=== PATIENT | female | born 1945 | race Caucasian/White ===

== ENCOUNTER 2020-09-05 09:40 | Outpatient (CLI) | payer OTHER, SELFPAY ==
--- NOTE | ~2020-09-05 | MM_ITS ---
EXAMINATION: MM screening [facility] BI w moe HISTORY: Screening TECHNIQUE: Craniocaudal and mediolateral oblique 3-D tomosynthesis images were obtained and synthetic 2-D images were generated. CAD analysis was submitted and interpreted. COMPARISON: Comparison to multiple prior studies sequentially, with oldest reviewed study dated 08/01. BREAST PARENCHYMAL COMPOSITION: There are scattered areas of fibroglandular density. FINDINGS: There is no evidence of suspicious mass, calcification, or architectural distortion to sugg est malignancy in either breast. There has been no suspicious interval change. IMPRESSION: 1. No mammographic evidence of malignancy. 2. Recommend routine screening mammography in one year. BI-RADS Category 1: Negative Reviewed, dictated and finalized at location A.
== END 2020-09-05 09:41 | disposition home or self-care (01) ==
LOC: ANHIMG 09:45
PROVIDERS: PCP Emergency Medicine; Visit Provider Emergency Medicine
DX: Z12.31 Encounter for screening mammogram for malignant neoplasm of breast (principal)
CPT/HCPCS: 77063; 77067

== ENCOUNTER 2021-01-08 14:29 | Outpatient (CLI) | payer OTHER, SELFPAY ==
--- NOTE | ~2021-01-08 | DEXA_ITS ---
Bone Density Report Name: Haydee Ruiz Age: 75 Sex: Female Ethnicity: White Date of : 1945 Indication: postmenopausal; height loss; hysterectomy; Referring Provider: DAVIAN OLIVER Study: Bone densitometry was performed. Exam Date: January 08, 2021 Accession number: [id number] Bone Density: Region BMD T-score Z-score Classification AP Spine (L1-L4) 0.943 -0.9 1.3 Normal Femoral Neck (Left) 0.727 -1.1 0.9 Osteopenia Total Hip (Left) 0.940 0.0 1.7 Normal Total Hip Bilateral Avg 0.894 -0.4 1.3 Normal Femoral Neck (Right) 0.676 -1.6 0.4 Osteopenia Total Hip (Right) 0.846 -0.8 0.9 Normal World Health Organization criteria for BMD impression classify patients as: Normal (T-score at or above -1.0), Osteopenia (T-score between -1.0 and -2.5), or Osteoporosis (T-score at or below -2.5). 10-year Fracture Risk(1): Major Osteoporotic Fracture 10% Hip Fracture 1.7% Reported Risk Factors: [place] (), Neck BMD=0.676, BMI=34.9 (1) FRAX(R) Version 3.08. Fracture probability calculated for an untreated patient. Fracture probability may be lower if the patient has received treatment. Previous Exams: Region Exam Age BMD T-score BMD Change BMD Change Date g/cm2 vs Baseline vs Previous AP Spine(L1-L4) 01/08/2021 75 0.943 -0.9 -0.043(-4.4%)# 0.006(0.7%) 01/27/2018 72 0.937 -1.0 -0.049(-5.0%)# -0.014(-1.5%) 08/13/2015 69 0.951 -0.9 -0.035(-3.6%)# -0.069(-6.7%)# 03/07/2009 63 1.019 -0.3 0.033(3.4%)* 0.033(3.4%)* 03/04/2007 61 0.986 -0.6 Total Hip(Left) 01/08/2021 75 0.940 0.0 0.022(2.4%)# 0.006(0.7%) 01/27/2018 72 0.934 -0.1 0.016(1.8%)# -0.021(-2.2%) 08/13/2015 69 0.955 0.1 0.038(4.1%)# -0.029(-3.0%)# 07/10/2013 67 0.984 0.3 0.067(7.3%)# -0.018(-1.8%) 06/05/2011 65 1.002 0.5 0.085(9.2%)# 0.066(7.0%)# 03/07/2009 63 0.937 0.0 0.019(2.1%) 0.019(2.1%) 03/04/2007 61 0.918 -0.2 Total Hip(Right) 01/08/2021 75 0.846 -0.8 -0.020(-2.3%)# -0.043(-4.8%)* 01/27/2018 72 0.890 -0.4 0.024(2.7%)# -0.009(-1.0%) 08/13/2015 69 0.898 -0.4 0.033(3.8%)# -0.007(-0.8%)# 07/10/2013 67 0.906 -0.3 0.040(4.6%)# 0.029(3.3%)* 06/05/2011 65 0.877 -0.5 0.011(1.3%)# 0.010(1.1%)# 03/07/2009 63 0.867 -0.6 0.001(0.2%) 0.001(0.2%) 03/04/2007 61 0.866 -0.6 *Denotes significance at 95% confidence level, LSC for AP Spine = 0.022 g/cm2, LSC for Total Hip = 0.027 g/cm2 Clinical Information Provided by Patient: --------
== END 2021-01-08 14:30 | disposition home or self-care (01) ==
PROVIDERS: PCP Emergency Medicine; Visit Provider Emergency Medicine
DX: R53.83 Other fatigue (principal); Z78.0 Asymptomatic menopausal state; M85.852 Other specified disorders of bone density and structure, left thigh; M85.851 Other specified disorders of bone density and structure, right thigh
CPT/HCPCS: 77080

== ENCOUNTER 2021-01-21 12:09 | Emergency (ER) | payer OTHER, SELFPAY ==
[2021-01-21 12:15] VITALS: BP 181/68; PULSE 89; RESP 20; TEMP 36.3; O2SAT 100
[2021-01-21 12:18] VITALS: BP 181/68; PULSE 89; RESP 20; TEMP 36.3; O2SAT 100
--- NOTE | 2021-01-21 12:40 | ED.SKABFB ---
HPI - Skin/Abscess/Foreign Bdy General Chief complaint: Skin/Abscess/Foreign Body Stated complaint: rash Time Seen by Provider: 01/21/21 12:42 Source: patient, RN notes reviewed and old records reviewed Mode of arrival: ambulatory Limitations: no limitations History of Present Illness HPI narrative: 75 year old female who presents to [facility] care with complaints of 2.5 weeks of dry irritated scaly rash to bilateral face around sides of her mouth.Patient states that at times it will form little pustules in rash. Patient states that she has tried new facial cleanser and toner lately that does contain some retinol. Patient denies any new medications, foods, laundry products or bath soaps. Patient states that she has applied Blistex to areas with no improvement. MD complaint: rash Onset (ago): week(s) (2.5) Related Data Home Medications Medication Instructions Recorded Confirmed calcium carbonate 500 mg (1,250 1 tablet PO BID 03/27/19 06/25/20 mg)-vitamin D3 200 unit tablet cholecalciferol (vitamin D3) 50 2,000 unit PO DAILY 03/27/19 06/25/20 mcg (2,000 unit) tablet metoprolol succinate 25 mg 25 mg PO DAILY 03/27/19 06/25/20 tablet,extended release 24 hr pediatric multivitamin PO BID tablet 03/28/19 06/25/20 no.12-sodium fluoride 0.25 mg chewable tablet Allergies Allergy/AdvReac Type Severity Reaction Status Date / Time Sulfa (Sulfonamide Allergy Unknown Headache Verified 10/23/20 09:57 Antibiotics) Review of Systems Review of Systems: CONSTITUTIONAL: Denies fever, chills, or sweats. EYES: Denies visual changes, redness, or discharge. ENT: Denies rhinorrhea, congestion, sore throat, or otalgia. CARDIOVASCULAR: Denies chest pain, palpitations, or edema. RESPIRATORY: Denies cough or dyspnea. GASTROINTESTINAL: Denies abdominal pain, nausea, vomiting, or diarrhea. GENITOURINARY: Denies dysuria or hematuria. SKIN:Positive for facial rash along sides of mouth,states burning sensation with no itching. MUSCULOSKELETAL: Denies back pain, joint pain, or myalgia. NEUROLOGIC: Denies headache, numbness, or weakness. PSYCHIATRIC: Denies anxiety or depression. All systems reviewed & are unremarkable except as noted in HPI and below PMFSH Past Medical History Medical History Anxiety Arthritis GERD (gastroesophageal reflux disease) Gout HTN (hypertension) Sinusitis UTI (urinary tract infection) Vitamin D deficiency Surgical History Surgical History H/O: hysterectomy Hx of cholecystectomy Family History Family History Sibling Hypertension Family history of human immunodeficiency virus infection, Onset Age: 32 Patient's brother is Family history of malignant neoplasm Family history of chronic obstructive pulmonary disease Father Family history of congestive heart failure Patient's father is Hypertension, Onset Age: 73 Family history of thoracic aortic aneurysm Family history of congenital heart disease, Onset Age: 73 Grandparent Diabetes mellitus Family history of pancreatic cancer, Onset Age: 83 Family history of primary malignant neoplasm of liver Asthma Mother Family history of osteoporosis Hypertension Patient's mother is in good health Family history of arthritis Social History Social History (Updated 01/23/21 @ 11:16 by Karla Mcdonough NP) Smoking status: Never smoker Alcohol intake: current Alcohol use details: rare Substance use: never Living arrangements: with family Occupation/Education: retired Gender identity (if verbalized by the patient): Female Comments At time of signature, agree with nursing past medical, surgical, social and family history. There is no relevant family history pertinent to the presenting complaint Exam Narrative: GENERAL: Well-
== END 2021-01-21 13:12 | disposition home or self-care (01) ==
PROVIDERS: Emergency Provider Registered Nurse; PCP Emergency Medicine
DX: L25.9 Unspecified contact dermatitis, unspecified cause (principal); M19.90 Unspecified osteoarthritis, unspecified site; K21.9 Gastro-esophageal reflux disease without esophagitis; M10.9 Gout, unspecified; I10 Essential (primary) hypertension; E55.9 Vitamin D deficiency, unspecified
CPT/HCPCS: 99213; G0463

== ENCOUNTER → 2021-06-26 09:13 | Outpatient (CLI) | payer OTHER, SELFPAY ==
--- NOTE | ~2021-06-26 | XR_ITS ---
EXAMINATION: XR foot LT 2V EXAM DATE: 06/26/2021 09:39 INDICATION: M79.672 - Pain in left foot TECHNIQUE: Frontal and lateral projections of the left foot Comparison is made to prior examination from 06/24/2018. Correlation was made with contralateral foot same date. FINDINGS: Tiny left calcaneal spurs. There is mild 1st metatarsophalangeal joint primary osteoarthri tis. There are no bony erosions identified. There are no acute fractures or dislocations identified. There is no subcutaneous gas. The soft tissue is unremarkable. There are no radiopaque foreign b odies. 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 Small calcaneal spurs. Reviewed, dictated and finalized at location A. AL BEHAVIORIST
--- NOTE | ~2021-06-26 | XR_ITS ---
EXAMINATION: XR foot RT 2V EXAM DATE: 06/26/2021 09:39 INDICATION: M79.671 - Pain in right foot. TECHNIQUE: Frontal and lateral projections of the right foot. Comparison study from 06/24/2018. FINDINGS: Small posterior and inferior right calcaneal spurs. There is mild right 1st metatarsophala ngeal joint. primary osteoarthritis. There are no bony erosions identified. There are no acute fract ures or dislocations identified. There is no subcutaneous gas. The soft tissue is unremarkable. T here are no radiopaque foreign bodies. IMPRESSION: Mild right 1st MTP osteoarthritis. Small calcaneal spurs. Reviewed, dictated and finalized at location A. OWS SYSTEMS ENGINEER
== END ==
PROVIDERS: Visit Provider Emergency Medicine
DX: M19.071 Primary osteoarthritis, right ankle and foot (principal); M19.072 Primary osteoarthritis, left ankle and foot; M77.31 Calcaneal spur, right foot; M77.32 Calcaneal spur, left foot
CPT/HCPCS: 73620

== ENCOUNTER 2022-03-13 11:00 | Outpatient (CLI) | payer OTHER, SELFPAY ==
--- NOTE | ~2022-03-13 | MM_ITS ---
EXAMINATION: MM screening [facility] BI w moe HISTORY: Screening mammogram TECHNIQUE: Craniocaudal and mediolateral oblique 3-D tomosynthesis images were obtained and synthetic 2-D images were generated. CAD analysis was submitted and interpreted. COMPARISON: 09/05/2020, 02/01/2019, 01/27/2018 BREAST PARENCHYMAL COMPOSITION: There are scattered areas of fibroglandular density. FINDINGS: No suspicious mass, calcification, or architectural distortion are identified in either tom ast to suggest malignancy. There has been no suspicious interval change. IMPRESSION: 1. No mammographic evidence of malignancy. 2. Recommend routine screening mammography in one year. BI-RADS Category 1: Negative Reviewed, dictated and finalized at location A. GER PAYMENT
== END 2022-03-13 11:01 | disposition home or self-care (01) ==
PROVIDERS: PCP Emergency Medicine; Visit Provider Emergency Medicine
DX: Z12.31 Encounter for screening mammogram for malignant neoplasm of breast (principal)
CPT/HCPCS: 77063; 77067

== ENCOUNTER 2023-05-02 12:02 | Emergency (ER) | payer OTHER, SELFPAY ==
[2023-05-02 12:13] VITALS: BP 169/68; PULSE 55; RESP 16; TEMP 36.3; O2SAT 98
[2023-05-02 12:14] VITALS: BP 169/68; PULSE 55; RESP 16; TEMP 36.3; O2SAT 98
--- NOTE | 2023-05-02 12:22 | ED.URI ---
HPI - URI/Sore Throat General Chief Complaint: Upper Respiratory Infection Stated Complaint: Cough, Wheezing Time Seen by Provider: 05/02/23 12:15 Source: patient and RN notes reviewed Mode of arrival: ambulatory Limitations: no limitations History of Present Illness HPI Narrative: Patient presents today with a 5 day history of cough, wheezing, rhinorrhea, and intermittent shortness of breath. Denies known fever, sore throat. No sick contacts. She has been taking Delsym and Mucinex without much relief. History of lupus for which she takes hydroxychloroquine. Related Data Home Medications Medication Instructions Recorded Confirmed calcium carbonate 500 mg-vitamin 1 tablet PO BID 03/27/19 05/02/23 D3 5 mcg (200 unit) tablet cholecalciferol (vitamin D3) 50 2,000 unit PO DAILY 03/27/19 05/02/23 mcg (2,000 unit) tablet pediatric multivitamin 1 tablet PO BID 03/28/19 05/02/23 no.12-sodium fluoride 0.25 mg chewable tablet Allergies Allergy/AdvReac Type Severity Reaction Status Date / Time Sulfa (Sulfonamide Allergy Unknown Headache Verified 05/02/23 12:11 Antibiotics) Review of Systems Review of Systems: CONSTITUTIONAL: Denies body aches, fever, chills, or sweats. EYES: Denies visual changes, redness, or discharge. ENT: Denies congestion, sore throat, or otalgia.+ rhinorrhea CARDIOVASCULAR: Denies chest pain, palpitations, or edema. RESPIRATORY: + cough, wheezing, shortness of breath GASTROINTESTINAL: Denies abdominal pain, nausea, vomiting, or diarrhea. GENITOURINARY: Denies dysuria or hematuria. SKIN: Denies rash, itching, or wounds. MUSCULOSKELETAL: Denies back pain, joint pain, or myalgia. NEUROLOGIC: Denies headache, numbness, tingling, or weakness. PSYCH: Denies depression or anxiety. [facility] Past Medical History Medical History Adverse effect of angiotensin-converting enzyme inhibitor Anxiety Arthritis Bilateral carotid bruits Body mass index [BMI] 32.0-32.9, adult (10/17/18) Body mass index [BMI] 33.0-33.9, adult (10/01/16) Body mass index [BMI] 34.0-34.9, adult (11/11/15) Candidal skin infection Chronic fatigue Cough due to TRACI inhibitor Disorder of bone, unspecified [place] (dyspnea on exertion) Elevated antinuclear antibody (YOBANI) level GERD (gastroesophageal reflux disease) Gout Gouty arthritis of left great toe History of colon polyps HTN (hypertension) Hyperglycemia Hyperuricemia Lichen sclerosus Night sweats Obstructive sleep apnea Orthopnea Peripheral edema Plantar fasciitis of right foot Sinusitis Syncope UTI (urinary tract infection) Vaginal dryness Vitamin D deficiency Witnessed apneic spells Surgical History Surgical History H/O: hysterectomy Hx of cholecystectomy Family History Family History Sibling Hypertension Family history of human immunodeficiency virus infection, Onset Age: 32 Patient's brother is Family history of malignant neoplasm Family history of chronic obstructive pulmonary disease Father Family history of congestive heart failure Patient's father is Hypertension, Onset Age: 73 Family history of thoracic aortic aneurysm Family history of congenital heart disease, Onset Age: 75 Grandparent Diabetes mellitus Family history of pancreatic cancer, Onset Age: 83 Family history of primary malignant neoplasm of liver Asthma Mother Family history of osteoporosis Hypertension Patient's mother is in good health Family history of arthritis Social History Social History Smoking status: Never smoker Alcohol intake: current Alcohol use details: rare Substance use: never Lack of Transportation: No Lack of Food: Never True Current Housing: I Have Housing
== END 2023-05-02 12:33 | disposition home or self-care (01) ==
PROVIDERS: Emergency Provider Nurse Practitioner; PCP Emergency Medicine
DX: J22 Unspecified acute lower respiratory infection (principal); M19.90 Unspecified osteoarthritis, unspecified site; K21.9 Gastro-esophageal reflux disease without esophagitis; I10 Essential (primary) hypertension; E55.9 Vitamin D deficiency, unspecified
CPT/HCPCS: 99213; G0463

== ENCOUNTER 2023-06-07 08:20 | Outpatient (CLI) | payer OTHER, SELFPAY ==
--- NOTE | ~2023-06-07 | DEXA_ITS ---
Bone Density Report Name: STEVAN MARIE Age: 77 Sex: Female Ethnicity: White Date of : 1945 Indication: postmenopausal; screening for osteoporosis; height loss; hysterectomy; Referring Provider: DAVIAN OLIVER Study: Bone densitometry was performed. Exam Date: June 07, 2023 Accession number: [id number] Bone Density: Region BMD T-score Z-score Classification AP Spine(L1-L4) 0.879 -1.5 0.9 Osteopenia Femoral Neck (Left) 0.726 -1.1 1.0 Osteopenia Total Hip (Left) 0.938 0.0 1.8 Normal Femoral Neck (Right) 0.602 -2.2 -0.1 Osteopenia Total Hip (Right) 0.869 -0.6 1.2 Normal Total Hip Mean 0.903 -0.3 1.5 Normal World Health Organization criteria for BMD impression classify patients as: Normal (T-score at or above -1.0), Osteopenia (T-score between -1.0 and -2.5), or Osteoporosis (T-score at or below -2.5). 10-year Fracture Risk(1): Major Osteoporotic Fracture 13% Hip Fracture 3.4% Reported Risk Factors: [place] (), Neck BMD=0.602, BMI=35.1 (1) FRAX(R) Version 3.08. Fracture probability calculated for an untreated patient. Fracture probability may be lower if the patient has received treatment. Previous Exams: Region Exam Age BMD T-score BMD Change BMD Change Date g/cm2 vs Baseline vs Previous AP Spine (L1-L4) 06/07/2023 77 0.879 -1.5 -0.072 (-7.6%) -0.064 (-6.8%) 01/08/2021 75 0.943 -0.9 -0.008 (-0.8%) 0.006 (0.7%) 01/27/2018 72 0.937 -1.0 -0.014 (-1.5%) -0.014 (-1.5%) 08/13/2015 69 0.951 -0.9 Total Hip(Left) 06/07/2023 77 0.938 0.0 -0.046 (-4.7%) -0.002 (-0.2%) 01/08/2021 75 0.940 0.0 -0.045 (-4.5%) 0.006 (0.7%) 01/27/2018 72 0.934 -0.1 -0.051 (-5.1%) -0.021 (-2.2%) 08/13/2015 69 0.955 0.1 -0.029 (-3.0%) -0.029 (-3.0%) 07/10/2013 67 0.984 0.3 Total Hip(Right) 06/07/2023 77 0.869 -0.6 -0.037 (-4.1%) 0.022 (2.6%) 01/08/2021 75 0.846 -0.8 -0.059 (-6.6%) -0.043 (-4.8%) 01/27/2018 72 0.890 -0.4 -0.016 (-1.8%) -0.009 (-1.0%) 08/13/2015 69 0.898 -0.4 -0.007 (-0.8%) -0.007 (-0.8%) 07/10/2013 67 0.906 -0.3 *Denotes significance at 95% confidence level, LSC for AP Spine = 0.022 g/cm2, LSC for Total Hip = 0.027 g/cm2 # Denotes dissimilar scan types or analysis methods Clinical Information Provided by Patient: Has used the following medications: Vitamin D, Calcium Has the following medical conditions: Hysterectomy Patient maximum height was 63 Menopause Age: 53 No regular
--- NOTE | ~2023-06-07 | MM_ITS ---
EXAMINATION: MM screening [facility] BI w moe HISTORY: Screening TECHNIQUE: Craniocaudal and mediolateral oblique 3-D tomosynthesis images were obtained and synthetic 2-D images were generated. CAD analysis was submitted and interpreted. COMPARISON: Comparison to multiple prior studies sequentially, with oldest reviewed study dated 09/15. BREAST PARENCHYMAL COMPOSITION: Not dense: There are scattered areas of fibroglandular density. FINDINGS: There is no evidence of suspicious mass, calcification, or architectural distortion to sugg est malignancy in either breast. There has been no suspicious interval change. IMPRESSION: 1. No mammographic evidence of malignancy. 2. Recommend routine screening mammography in one year. BI-RADS Category 1: Negative Reviewed, dictated and finalized at location A. THCARE RECEPTIONIST
== END 2023-06-07 08:21 | disposition home or self-care (01) ==
LOC: ANHIMG 08:21
PROVIDERS: PCP Emergency Medicine; Visit Provider Emergency Medicine
DX: Z12.31 Encounter for screening mammogram for malignant neoplasm of breast (principal); Z78.0 Asymptomatic menopausal state; M85.88 Other specified disorders of bone density and structure, other site; M85.852 Other specified disorders of bone density and structure, left thigh; M85.851 Other specified disorders of bone density and structure, right thigh
CPT/HCPCS: 77063; 77067; 77080

== ENCOUNTER 2024-01-27 11:46 | Outpatient (CLI) | payer OTHER, SELFPAY ==
--- NOTE | ~2024-01-27 | XR_ITS ---
Left Shoulder Technique: AP and scapular Y views were obtained. Clinical History: Pain Findings: No fracture or dislocation is seen. Osseous alignment is anatomic. The glenohumeral and acr omioclavicular joint spaces are preserved. Soft tissues are unremarkable. Impression: Unremarkable left shoulder radiographs. Reviewed, dictated and finalized at [facility]. Impression: Unremarkable left shoulder radiographs.
== END 2024-01-27 11:47 | disposition home or self-care (01) ==
PROVIDERS: PCP Emergency Medicine; Visit Provider Emergency Medicine
DX: M25.512 Pain in left shoulder (principal)
CPT/HCPCS: 73030

== ENCOUNTER 2025-04-10 15:47 | Outpatient (CLI) | payer OTHER, SELFPAY ==
--- NOTE | ~2025-04-10 | MM_ITS ---
EXAMINATION: MM screening [facility] BI w moe HISTORY: Screening. TECHNIQUE: Craniocaudal and mediolateral oblique 3-D tomosynthesis images were obtained and synthetic 2-D images were generated. CAD analysis was submitted and interpreted. COMPARISON: 2023, 2021, and 2020 BREAST PARENCHYMAL COMPOSITION: Not Dense: There are scattered areas of fibroglandular tissue. FINDINGS: The exam is suboptimal because of difficulty with positioning the patient. No suspicious masses are seen. There are no suspicious calcifications. No unexplained architectural distortion is seen. There are no skin or nipple abnormalities identified. There is no adenopathy seen on the images submitted. IMPRESSION: No mammographic evidence to suggest malignancy is seen. The patient may return to screening mammography as per ACR guidelines. BI-RADS 1 - Negative. Reviewed, dictated and finalized at location C. RAL HOUSE WORKER
--- OUTSIDE RECORDS SUMMARY | 2025-04-10 15:50 | XMS_ITS | Clinical Summary ---
Author Organization [facility] [address] Address [address] [place] [address] Care Team Providers Care Optician Manager Name Role Phone Forest Hannon MD Primary Care Provide r Allergies No known active allergies Active Problems Problem Noted Date Diagnosed Date Systemic lupus erythematosus 08/09/2012 Overview (07/23/2016): Systemic lupus Gastroesophageal reflux disease 08/09/2012 Overview (07/23/2016): GERD (gastroesophageal reflux disease) Hypertension 08/09/2012 Overview (07/23/2016): Hypertension Immunizations Immunization Administration Dates Next Due Influenza, Trivalent, IM (MDV) 12/18/2012,2011 Surgical History Surgery Date Site/Laterality Comments HYSTERECTOMY 2000 Hysterectomy CHOLECYSTECTOMY 2004 Cholecystectomy Family History Medical History Relation Name Comments Cancer Brother 2 Cancer; Cause o f : Cancer Heart disease Father 2 Heart disease; Cause of : Heart disease Diabetes Maternal Grandmother Diabete s mellitus; Osteoporosis Mother Osteoporosis; Relation Name Status Comments Brother 1 Brother 2 Father 1 Father 2 Maternal Grandmother Mother Social History Tobacco Use Types Packs/Day Years Used Date Smoking Tobacco: Never Alcohol Use Standard Drinks/Week Comments Yes 0 (1 standard drink = 0.6 oz pur e alcohol) Comments Unknown Sex and Gender Information Value Date Recorded Sex Assigned at Not on file Legal Sex Female 11:59 PM STORE STANDARDS ASSOCIATE Gender Identity Not on file Sexual Orientation Not on file Last Filed Vital Signs Vital Sign Reading Time Taken Comments Blood Pressure 132/72 02/23/2014 10:00 AM STORE STANDARDS ASSOCIATE Pulse 52 02/23/2014 10:00 AM STORE STANDARDS ASSOCIATE Temperature - - Respiratory Rate - - Oxygen Saturation - - Inhaled Oxygen Concentration - - Weight 85.8 kg (189 lb 3.2 oz) 02/23/2014 10:00 AM STORE STANDARDS ASSOCIATE Height 160 cm (5' 3) 02/23/2014 10:00 AM STORE STANDARDS ASSOCIATE Body Mass Index 33.52 02/23/2014 10:00 AM STORE STANDARDS ASSOCIATE Plan of Treatment Not on file Insurance [employer] Care Teams Optician Manager Relationship Specialty Start Date End Date Forest Hannon MD [address] [place], [place] [id number] PCP - General 02/23/14
== END 2025-04-10 15:48 | disposition home or self-care (01) ==
LOC: ANHFOHIMG 15:48
PROVIDERS: PCP Emergency Medicine; Visit Provider Emergency Medicine
DX: Z12.31 Encounter for screening mammogram for malignant neoplasm of breast (principal)
CPT/HCPCS: 77063; 77067